=== PATIENT | female | born 1945 | race Caucasian/White ===

== ENCOUNTER → 2016-09-17 | Outpatient (CLI) | payer OTHER | LOC: BRMIMAGING 07:44 | DX: Z12.31 Encounter for screening mammogram for malignant neoplasm of breast (principal) | CPT/HCPCS: G0202 ==

== ENCOUNTER → 2016-12-31 | Outpatient (CLI) | payer OTHER | LOC: BRMIMAGING 08:42 | PROVIDERS: ATTEND Internal Medicine Rheumatology | DX: Z13.820 Encounter for screening for osteoporosis (principal); M81.0 Age-related osteoporosis without current pathological fracture; S32.040A Wedge compression fracture of fourth lumbar vertebra, initial encounter for closed fracture; Z78.0 Asymptomatic menopausal state ==

== ENCOUNTER → 2017-01-17 | Outpatient (CLI) | payer OTHER | LOC: BRMIMAGING 09:43 | PROVIDERS: ATTEND Internal Medicine Rheumatology | DX: M80.08XA Age-related osteoporosis with current pathological fracture, vertebra(e), initial encounter for fracture (principal) | CPT/HCPCS: 72100-PO ==

== ENCOUNTER → 2017-09-20 | Outpatient (CLI) | payer OTHER | LOC: BRMIMAGING 08:02 | PROVIDERS: ATTEND Physician Assistant | DX: Z12.31 Encounter for screening mammogram for malignant neoplasm of breast (principal) ==

== ENCOUNTER → 2018-09-25 | Outpatient (CLI) | payer OTHER | LOC: BRMIMAGING 09:02 | DX: Z12.31 Encounter for screening mammogram for malignant neoplasm of breast (principal) ==